=== PATIENT | female | born 2000 | race African-American/Black ===

== ENCOUNTER → 2021-07-19 14:21 | Outpatient (CLI) | payer OTHER, SELFPAY ==
--- NOTE | 2021-07-19 14:24 | DI.US.S_ITS ---
PROCEDURE: US OB <= 14 WEEKS FETUS INDICATIONS: DATES OUTSIDE/PRIOR DATING DATA: Last menstrual period (LMP): 05/13/21. LMP-based estimated date of delivery (JOSÉ MIGUEL): 02/17/22. First dating scan (date and location): 07/19/21, current study. Estimated date of delivery (JOSÉ MIGUEL) from first dating scan: 02/15/22. TECHNIQUE: Real-time scanning was performed of the fetus and maternal pelvic organs, with image documentation. COMPARISON: None. FINDINGS: Embryo: An intrauterine is present including a single pole with an average crown-rump length of 3.02 cm corresponding to a nine week six day plus or minus six days gestation. There is detectable cardiac activity in the fetus at a rate of 147 beats per minute. A normal yolk sac is present. There is an unfused amnion. Maternal organs: The cervix is closed. The intrauterine gestational sac is fundal and there is no perigestational hemorrhage. There is a peripherally vascular involuting right corpus luteum. The left ovary was not seen. IMPRESSION: 1. Single living intrauterine with a gestational age by ultrasound of nine weeks six days plus or minus six days, in good agreement with the clinically assigned gestational age. 2. Right ovarian corpus luteum. We strive to produce accurate, complete, and clear reports of imaging services. To assist us in improving patient care, this report was composed using standard report templates and voice recognition software. Therefore, it may contain abnormal punctuation, insertions and/or omissions. Occasional wrong-word or sound-alike substitutions may occur. Though we review the report and make efforts to correct it, we do recommend that the report be read carefully in proper context to recognize any text inaccuracies. Dictated by: Berenice Arceo M.D. on 07/19/2021 at 17:49 Approved by: Berenice Arceo M.D. on 07/19/2021 at 17:52
== END ==
PROVIDERS: Referring Provider Family Medicine; Visit Provider Family Medicine
DX: O34.81 Maternal care for other abnormalities of pelvic organs, first trimester (principal); N83.11 Corpus luteum cyst of right ovary; Z3A.09 9 weeks gestation of pregnancy
CPT/HCPCS: 76801; 76817

== ENCOUNTER → 2021-08-03 15:46 | Outpatient (CLI) | payer OTHER, SELFPAY ==
[2021-08-03 16:50] LABS: Add Manual Diff / Slide Review NO; Basophils Absolute Auto 0 /uL (0-100); Basophils Percent Auto 0.5 % (0-2); Eosinophils Absolute Auto 300 /uL (0-450); Eosinophils Percent Auto 3.9 % (2-4); Hematocrit 42.3 % (36-46); Hemoglobin 14.1 g/dL (12.0-16.0); Lymphocytes Absolute Auto 2100 /uL (1100-4500); Lymphocytes Percent Auto 24.9 % (25-40); Mean Corpuscular HGB Conc 33.3 % (30-36); Mean Corpuscular Hemoglobin 28.6 PG (26-34); Mean Corpuscular Volume 85.9 fL (80-100); Monocytes Absolute Auto 500 /uL (0-900); Monocytes Percent Auto 6.1 % (3-14); Neutrophils Absolute Auto 5500 /uL (1500-7000); Neutrophils Percent Auto 64.6 % (50-75); Platelet Count 254 X10^3/uL (150-400); Red Blood Cell Count 4.92 X10^6/uL (4.0-5.2); Red Cell Distribution Width 14.1 % (11.6-14.8); White Blood Cell Count 8.5 X10^3/uL (4.5-11.0)
[2021-08-03 17:34] LABS: Appearance Urine UA CLEAR; Bilirubin Urine UA NEGATIVE (NEGATIVE); Color Urine UA YELLOW; Glucose Urine UA NEGATIVE (Negative); Ketones Urine UA 2+ (NEGATIVE); Leukocyte Esterase Urine UA NEGATIVE (NEGATIVE); Nitrite Urine UA NEGATIVE (Negative); Occult Blood Urine UA NEGATIVE (Negative); Protein Urine UA NEGATIVE (Negative); Specific Gravity Urine UA 1.015 (1.000-1.035); Urobilinogen Urine UA 0.2 E.U./dL (0.2)
[2021-08-03 18:08] LABS: Folate > 20.0 ng/mL (2.76-20.0); Vitamin B12 620 pg/mL (239-931)
[2021-08-03 18:31] LABS: Hepatitis B Surface Antigen NEGATIVE s/c (NEGATIVE); Rubella Antibody IgG 9.2 IU/mL (>15)
[2021-08-03 18:47] LABS: HIV 1 & 2 Ab/Ag 4th Gen Combo NEGATIVE (NEGATIVE); Hep C Virus Ab w/Reflex Quant NEGATIVE s/c (NEGATIVE)
[2021-08-04 13:24] LABS: RPR Screen Non Reactive (Non Reactive); Varicella IgG Antibody <135 index (Immune >165)
== END ==
PROVIDERS: PCP Family Medicine; Referring Provider Family Medicine; Visit Provider Family Medicine
DX: Z34.00 Encounter for supervision of normal first pregnancy, unspecified trimester (principal); D56.0 Alpha thalassemia
CPT/HCPCS: 36415; 80055; 81003; 82607; 82746; 86787; 86803; 86850; 86900; 86901; 87086; 87389

== ENCOUNTER → 2021-08-30 12:53 | Outpatient (CLI) | payer OTHER, SELFPAY | PROVIDERS: PCP Family Medicine; Visit Provider Obstetrics & Gynecology | DX: O26.899 Other specified pregnancy related conditions, unspecified trimester (principal); R10.9 Unspecified abdominal pain | CPT/HCPCS: 87086 ==

== ENCOUNTER → 2021-09-27 15:18 | Outpatient (CLI) | payer OTHER, SELFPAY ==
[2021-09-27 16:08] LABS: Add Manual Diff / Slide Review NO; Basophils Absolute Auto 0 /uL (0-100); Basophils Percent Auto 0.4 % (0-2); Eosinophils Absolute Auto 200 /uL (0-450); Eosinophils Percent Auto 2.4 % (2-4); Hematocrit 36.1 % (36-46); Hemoglobin 12.3 g/dL (12.0-16.0); Lymphocytes Absolute Auto 1900 /uL (1100-4500); Lymphocytes Percent Auto 22.2 % (25-40); Mean Corpuscular HGB Conc 34.2 % (30-36); Mean Corpuscular Hemoglobin 29.7 PG (26-34); Mean Corpuscular Volume 86.9 fL (80-100); Monocytes Absolute Auto 700 /uL (0-900); Monocytes Percent Auto 8.6 % (3-14); Neutrophils Absolute Auto 5600 /uL (1500-7000); Neutrophils Percent Auto 66.4 % (50-75); Platelet Count 210 X10^3/uL (150-400); Red Blood Cell Count 4.15 X10^6/uL (4.0-5.2); Red Cell Distribution Width 13.7 % (11.6-14.8); White Blood Cell Count 8.5 X10^3/uL (4.5-11.0)
[2021-09-29 22:21] LABS: AFP Value 74.5 ng/mL (.); Gestational Age Ultrasound (.); Insulin Dep Diabetes No (.); OSBR Risk 1IN 10000 (.); Results Report (.); Test Results *Screen Negative* (.)
== END ==
PROVIDERS: PCP Family Medicine
DX: Z34.02 Encounter for supervision of normal first pregnancy, second trimester (principal); Z83.2 Family history of diseases of the blood and blood-forming organs and certain disorders involving the immune mechanism
CPT/HCPCS: 36415; 82105; 85025

== ENCOUNTER → 2021-10-04 14:10 | Outpatient (CLI) | payer OTHER, SELFPAY ==
--- NOTE | 2021-10-04 14:11 | DI.US.S_ITS ---
PROCEDURE: US OB >= 14 WEEKS FETUS INDICATIONS: 20 Week Anatomy Scan OUTSIDE/PRIOR DATING DATA: Last menstrual period (LMP): 05/13/2021 LMP-based estimated date of delivery (JOSÉ MIGUEL): 02/17/2022. First dating scan (date and location): 07/19/2021. Estimated date of delivery (JOSÉ MIGUEL) from first dating scan: 02/15/2022. The calculations are made using the ultrasound JOSÉ MIGUEL of 02/15/2022. TECHNIQUE: Real-time scanning was performed of the fetus, with image documentation and biometric measurements. COMPARISON: [facility], , OB <= 14 WEEKS FETUS, 07/19/2021, 14:35. FINDINGS: General: A single living intrauterine gestation is present. Presentation: Vertex. Placenta: Placental position is posterior , without previa. Amniotic fluid index: 11.5 cm, normal range is 5-24 cm. Single deepest vertical pocket is 4.4 cm. heart rate: 141 beats per minute. Maternal cervical canal: 6.9 cm long. Normal lower limit is 2.5 cm. biometrics: Biparietal diameter: 21 weeks 4 days Head circumference: 21 weeks 2 days Abdominal circumference: 21 weeks 2 days Femur length: 20 weeks 5 days Clinically estimated gestational age: 20 weeks 6 days Composite gestational age from present scan: 21 weeks 2 days Estimated weight and percentile: 397 g; 37th percentile Anatomic survey: Neuro: Ventricles are non-dilated at less than 10 mm. Cisterna magna is normal at 3-11 mm. Cerebellum is normal in size and morphology. Nuchal skin fold: Normal at less than 6 mm between 14-21 weeks gestational age. Face: Nose and lips, facial profile are normal. Spine: No evidence for spina bifida. Heart: 4-chambered heart is present, with normal ventricular outflow tracts. Diaphragm: Diaphragm is intact. Stomach: Left-sided stomach is present. Kidneys: No hydronephrosis. Normal is less than 5 mm in 2nd trimester, less than 7 mm in 3rd trimester. Cord: 3-vessel cord has orthotopic insertion. Bladder: Normal in size. Extremities: All 4 extremities identified. IMPRESSION: 1. Single living IUP redemonstrated and interval growth is normal. 2. Normal anatomic survey. We strive to produce accurate, complete, and clear reports of imaging services. To assist us in improving patient care, this report was composed using standard report templates and voice recognition software. Therefore, it may contain abnormal punctuation, insertions and/or omissions. Occasional wrong-word or sound-alike substitutions may occur. Though we review the report and make efforts to correct it, we do recommend that the report be read carefully in proper context to recognize any text inaccuracies. Dictated by: Jon COFFMAN Interpreted: Cindy Pascual MD on 10/04/2021 at 15:36 Transcribed by: DEON on 10/04/2021 at 15:38 Approved by: Cindy Pascual M.D. on 10/04/2021 at 16:37
== END ==
PROVIDERS: PCP Family Medicine; Referring Provider Obstetrics & Gynecology; Visit Provider Obstetrics & Gynecology
DX: Z34.02 Encounter for supervision of normal first pregnancy, second trimester (principal); Z3A.21 21 weeks gestation of pregnancy
CPT/HCPCS: 76811

== ENCOUNTER → 2021-11-23 15:11 | Outpatient (CLI) | payer OTHER, SELFPAY ==
[2021-11-23 16:47] LABS: Hematocrit 35.5 % (36-46); Hemoglobin 11.9 g/dL (12.0-16.0)
[2021-11-23 17:14] LABS: GTT (PREG) 1 Hour PP 50gm Dose 65 mg/dL (76-139)
== END ==
PROVIDERS: Referring Provider Family Medicine; Visit Provider Family Medicine
DX: Z34.00 Encounter for supervision of normal first pregnancy, unspecified trimester (principal); Z3A.28 28 weeks gestation of pregnancy
CPT/HCPCS: 36415; 82950; 85014; 85018

== ENCOUNTER → 2021-12-07 13:01 | Outpatient (CLI) | payer OTHER, SELFPAY ==
--- NOTE | 2021-12-07 13:02 | DI.US.S_ITS ---
PROCEDURE: US OB LIMITED INDICATIONS: SIZE GREATER THAN DATES TECHNIQUE: Real-time scanning of the fetus with image documentation. COMPARISON: None. FINDINGS: A single living intrauterine gestation is present. Presentation: Vertex. Placenta: Placental position is posterior, without previa. Amniotic fluid index: 15.9 cm, normal range is 5-24 cm. Single deepest vertical pocket is 4.8 cm. heart rate: 131 beats per minute. Maternal cervical canal: 3.9 cm long. Normal lower limit is 2.5 cm. Estimated gestational age from initial scan: 30 weeks 0 days Estimated gestational age from the current study: 30 weeks 5 days. Estimated weight: 1707 grams, 77th percentile. IMPRESSION: Single living intrauterine gestation with normal HYACINTH and appropriate growth. Size concordant with dates. Dictated by: Edward Camarena M.D. on 12/08/2021 at 11:47 Approved by: Edward Camarena M.D. on 12/08/2021 at 11:57
== END ==
PROVIDERS: Referring Provider Family Medicine; Visit Provider Family Medicine
DX: Z36.88 Encounter for antenatal screening for fetal macrosomia (principal); Z3A.30 30 weeks gestation of pregnancy
CPT/HCPCS: 76815

== ENCOUNTER → 2022-01-20 16:34 | Outpatient (CLI) | payer OTHER, SELFPAY ==
[2022-01-21 12:52] LABS: Strep Grp B PCR NEG for Grp B Strep
== END ==
PROVIDERS: Visit Provider Family Medicine
DX: Z34.93 Encounter for supervision of normal pregnancy, unspecified, third trimester (principal); Z3A.36 36 weeks gestation of pregnancy
CPT/HCPCS: 87653

== ENCOUNTER 2022-02-07 05:49 | Inpatient (IN) | payer OTHER, SELFPAY ==
[2022-02-07] MEDS: LACTATED RINGERS 1,000 ML 999 ML IV ×3 (06:46→15:56)
[2022-02-07] MEDS: PENICILLIN G POTASSIUM 5,000,000 UNIT in DEXTROSE 5% IN WATER 250 ML 250 UNIT IV (06:58)
[2022-02-07 07:31] LABS: Add Manual Diff / Slide Review NO; Basophils Absolute Auto 0 /uL (0-100); Basophils Percent Auto 0.3 % (0-2); Eosinophils Absolute Auto 100 /uL (0-450); Eosinophils Percent Auto 0.5 % (2-4); Hematocrit 40.6 % (36-46); Hemoglobin 13.3 g/dL (12.0-16.0); Lymphocytes Absolute Auto 1900 /uL (1100-4500); Lymphocytes Percent Auto 17.2 % (25-40); Mean Corpuscular HGB Conc 32.8 % (30-36); Mean Corpuscular Hemoglobin 28.7 PG (26-34); Mean Corpuscular Volume 87.6 fL (80-100); Monocytes Absolute Auto 500 /uL (0-900); Monocytes Percent Auto 4.4 % (3-14); Neutrophils Absolute Auto 8700 /uL (1500-7000); Neutrophils Percent Auto 77.6 % (50-75); Platelet Count 229 X10^3/uL (150-400); Red Blood Cell Count 4.64 X10^6/uL (4.0-5.2); Red Cell Distribution Width 14.1 % (11.6-14.8); White Blood Cell Count 11.2 X10^3/uL (4.5-11.0)
--- NOTE | 2022-02-07 07:31 | P.HPOB_ITS ---
OB HPI Date/Time Date of admission: 02/07/22 Date Patient Seen: 02/07/22 Time Patient Seen: 07:45 History of Present Condition Chief complaint: labor JOSÉ MIGUEL Calculator Estimated Delivery Date Method Current WG Current Estimate 02/17/22 LMP (Certain) 38w 4d Other Estimates 02/15/22 Ultrasound #1 38w 6d Estimated Gestational Age (weeks): 38w4d : 1 Para: 0 Narrative: 22-year-old at 38 weeks and 4 days gestation who presented in active labor. Denies leaking bleeding and reports good movement. She was seen at [facility] overnight for labor check and discharged home. She returned early this morning. was complicated by concern for alpha thalassemia early in the . She saw [facility] and this was ruled out. She also had significant nausea and vomiting throughout her which improved by the end. There was concern for size greater than dates at 30 weeks. Gestational diabetes testing was negative. Ultrasound was significant for estimated weight at the seventy-seventh percentile at 30 weeks. care: good care, initiated at week # (11), number of visits (11) and pounds weight gain (27) Dating criteria OB: LMP confirmed by 1st trimester US Ultrasounds: normal mid trimester US Obstetrical complications: none Medical complications OB: none Preadmission Labs Last OB Lab Results: Blood Type O Positive 08/03/21 15:52 Antibody Screen Negative 08/03/21 15:52 Hematocrit 40.6 % (36-46) 02/07/22 06:50 Hemoglobin 13.3 g/dL (12.0-16.0) 02/07/22 06:50 Hepatitis B Surface Antigen Negative s/c (NEGATIVE) 08/03/21 15 :52 Hepatitis C Antibody Negative s/c (NEGATIVE) 08/03/21 15:52 Rubella Antibody 9.2 IU/mL (>15) L 08/03/21 15:52 Varicella-Zoster IgG Antibody <135 index (Immune >165) L 15:52 Glucose 1 Hour 65 mg/dL (76-139) L 11/23/21 16:15 Group B Streptococcus (PCR) Neg for grp b strep 01/20/22 16:34 -: Urine: negative Genetic Screens: Quad screen: Normal External Labs -: Urine: negative Evaluation Evaluation Baseline heart rate: 115 Variability: Moderate (11-25) monitor accelerations: Present Monitor Decelerations: Absent Contraction Frequency (minutes): 2 Status: Category l Dilation (cm): 5 Effacement (%): 100 station: -2 Non-invasive Membranes Rupture Test: negative PFS Medical History Anemia (~2020) Eczema Ovarian cyst (~2017) Surgical History H/O wisdom tooth extraction Family History Mother Acquired hypothyroidism DVT (deep venous thrombosis) Father Acute Crohn's disease Degenerative disc disease Grandmother Hypertension Cancer History of heart disease Grandfather Diabetes mellitus Grandmother Cancer Social History marital status: unmarried,living together (engaged) number of children: 0 household members: significant other lives independently: Yes housing: apartment pets and animals: No education level: college occupational status: employed () current occupational exposures/hazards: No special paulo needs: No seatbelt use: always water heater temp set < 120 deg: No working smoke detector in home: Yes fire extinguisher in home: No carbon monox detector in home: Yes firearms in home: No do you feel safe at home: Yes Smoking Status: Never smoker alcohol intake: former substance use type: does not use during the past year weight has: remained stable well-balanced diet: daily or most days daily servings fruits/ve-4 caffeine: Yes (aware limit 200 mg) Type(s) of exercise: walking (hiking) Meds Home Medications and Allergies Home Medications Medication Instructions Recorded Confirmed Type prenat.vits,marta,ewo-zcul-ufasv 1 tab PO DAILY 06/30/21 02/03/22 History Double Electric Breast Pump and #1 ea 12/23/21 02/03/22 Rx supplies ondansetron HCl 4 mg tablet 4 mg PO Q8H PRN nausea and 12/23/21 02/03/22 Rx vomiting #30 tabs Allergies Allergy/AdvReac Type Severity Reaction Status Date / Time No Known Drug Allergies Allergy Verified 02/07/22 07:44 Review of Systems Review of Systems ROS: Yes All systems reviewed with the patient and are negative except as othe rwise documented OB Exam Narrative Exam Narrative: Temperature 36.7? blood pressure 131/79 heart rate 82 HENMT Head: normal to inspection Mouth: oral mucosae normal Other: Shaking and vomiting after epidural placement Eyes General: appearance normal, both eyes and all related structures Resp Effort & Inspection: normal respiratory effort Cardio Rate: regular rate Rhythm: regular rhythm Extremities Lower extremity: Yes normal to inspection; No edema Presentation: vertex Estimated Weight (lbs): 7 Objective Labs Result Diagrams: 02/07/22 06:50 Assessment and Plan Assessment and Plan Assessment and Plan narrative: 22-year-old at 38 weeks and 4 days gestation in active labor. GBS positive. Plan Admit for labor Began penicillin for GBS prophylaxis Epidural upon request Anticipate
[2022-02-07 07:34] LABS: COVID19 -Nasal RAPID Negative (Negative)
[2022-02-07 07:47] VITALS: BP 131/79
[2022-02-07] MEDS: FENT 2MCG/ML BUPIV 0.125% EPI 200 MCG/100 ML PLAST..BAG 6 MCG EPIDURAL (08:10)
[2022-02-07] MEDS: ONDANSETRON 4 MG/2 ML INJ IV ×2 (08:31→12:32)
--- NOTE | 2022-02-07 11:02 | PM.OBPNLAB ---
Date/Time Date Patient Seen: 02/07/22 Time Patient Seen: 10:49 Pain Control Pain control: epidural Pelvic Exam Dilation (cm): 5 Effacement (%): 100 station: -2 Amniotic membrane status: Intact Contractions Monitor mode: External Contraction frequency (min): 6 Status status: Category ll Heart Rate Baseline: 120 Monitor Accelerations: Absent Monitor Decelerations: Prolonged (7 minute deceleration down to 60s) Assessment and Plan Assessment: active labor Comments: 22 year old at 38+4 weeks in active labor with an epidural now with a prolonged deceleration for 7 minutes down to the 60s. Decel resolved after IV fluid bolus, oxygen and hands and knees. Terbutaline 0.25 mg IM also given. Baseline returned to 130s with moderate variability, accelerations and no further decelerations. Discussed the need for emergent section with the patient and her partner if another prolonged deceleration occurs. SVE was unchanged from this morning though contractions had spaced out after epidural placement. Will continue to monitor closely.
[2022-02-07] MEDS: PENICILLIN G POTASSIUM 3,000,000 UNIT/50 ML FROZ.PIGGY 100 UNIT IV ×2 (11:18→14:48)
--- NOTE | 2022-02-07 13:24 | PM.OBPNLAB ---
Date/Time Date Patient Seen: 02/07/22 Time Patient Seen: 12:50 Pain Control Pain control: tolerating well and epidural Comments: She is quite nauseated and has been vomiting. Just received Zofran. Otherwise comfortable with epidural. Pelvic Exam Dilation (cm): 6 Effacement (%): 100 station: -2 Amniotic membrane status: Ruptured (AROM with small amount of clear fluid) Contractions Monitor mode: External Contraction frequency (min): 4 Status status: Category l Heart Rate Baseline: 130 Monitor Accelerations: Present Monitor Decelerations: Absent Monitor Variability: Moderate Assessment and Plan Assessment: active labor Plan: continuous present management Comments: 22 year old at 38+4 weeks gestation in active labor. EFM category 1 for the last 2 hours following prolonged 7 minute deceleration. She has made slight cervical change since 8 AM today. AROM performed with clear fluid. Will continue to monitor closely and manage expectantly.
--- NOTE | 2022-02-07 15:10 | PM.OBPNLAB ---
Date/Time Date Patient Seen: 02/07/22 Time Patient Seen: 15:00 Pain Control Pain control: epidural Pelvic Exam Dilation (cm): 6 Effacement (%): 100 station: -2 Amniotic membrane status: Ruptured (AROM with small amount of clear fluid) Contractions Monitor mode: External Contraction frequency (min): 4 Status status: Category ll Heart Rate Baseline: 120 Monitor Accelerations: Present Monitor Decelerations: Prolonged Assessment and Plan Assessment: active labor Plan: Comments: 22 year old at 38+4 weeks gestation with intolerance of labor with a second prolonged deceleration to the 90s for 2 minutes, brief return to 120s followed by another deceleration to the 90s for two minutes then recovery to baseline. Cervix has not progressed over the last several hours as well. Unable to start pitocin due to non-reassuring FHT. Recommended primary section for non-reassuring heart tones. Risks of bleeding, infection, injury to surrounding organs discussed with the patient and her . All questions answered and consent signed. She is accepting of a blood transfusion if indicated. Will give cefazolin 2 g and azithromycin 500 mg prior to surgery.
--- NOTE | 2022-02-07 15:16 | PM.PREOP ---
Pre-operative Note COVID-19 COVID-19 status: Negative Result date/Date tested (Pos, Neg/Pending): 02/07/22 Interval Note History & Physical reviewed/Exam performed by Physician: Yes Changes to H&P: No
[2022-02-07] MEDS: CEFAZOLIN 2 GM/100 ML PREMIX 100 ML IV (15:27)
--- NOTE | 2022-02-07 15:32 | SUR.OPER ---
Supine on Padded OR bed, head on pillow, safety belt at thigh, arms secured on padded arm boards at <90 degrees abduction. Bump under right buttock. Legs uncrossed with pillow under knees, tape over blanket to lower legs.
[2022-02-07] MEDS: AZITHROMYCIN 500 MG in DEXTROSE 5% IN WATER 250 ML 250 MG IV (15:43)
--- NOTE | 2022-02-07 15:44 | SUR.OPER ---
FHT's 140's. TOB 1543 live male. Placenta and cord blood x 2 to OB with OB RN
[2022-02-07 16:31] VITALS: BP 114/74; PULSE 96; RESP 20; TEMP 36.9; O2SAT 100
[2022-02-07 16:36] VITALS: BP 108/81; PULSE 92; RESP 22; O2SAT 100
--- NOTE | 2022-02-07 16:37 | PM.OBCS.1 ---
Operative Date/Time/Diagnoses Date of procedure: 02/07/22 Time of procedure: 15:35 Pre-op diagnosis: Non-reassuring heart tones 38 weeks of Post-op diagnosis: same Procedure & Clinicians Procedure: Primary low transverse section Same procedure as scheduled: Yes Indications: Non-reassuring heart tones 38 weeks of Surgeon: Ellen Loyd Click Yes if Unassisted: No Bottom Filler: Ashely Groves Reason for Bottom Filler: Dr. Groves was essential to the case for retraction, suctioning, delivery of and suturing half of incisions. Operative Notes Findings: Vigorous male infant, normal uterus, tubes and ovaries Closure Type: primary Specimen(s): cord blood and cord pH Intraoperative meds administered: Ketorolac and Pitocin Applied: Catheter Estimated Blood Loss (mL): 400 Procedure in detail: The patient was taken to the operating room and transferred to the operating table. She was then placed in the dorsal supine position with a leftward tilt. She was prepped and draped in the usual sterile fashion. A timeout was performed. After epidural analgesia was found to be adequate, a Pfannenstiel skin incision was made 2 fingerbreadths above the pubic symphysis and carried through to the underlying layer fascia. The fascia was nicked in the midline and the incision extended bilaterally with Bacon scissors. The superior aspect of the fascial incision was grasped with a Addie clamps, elevated, and the underlying rectus muscles dissected off sharply and bluntly. Attention was then turned to the inferior aspect of this incision which in a similar fashion was grasped with a Addie clamps, elevated, and the underlying rectus muscles dissected off sharply and bluntly. The rectus muscles were in the midline. The peritoneum was identified and entered bluntly. This incision was extended superiorly and inferiorly with lateral traction from both physicians with good visualization of the bladder. The bladder blade was inserted. The vesicouterine peritoneum was identified, grasped with the pickup, and entered sharply with the Metzenbaum scissors. This incision was extended bilaterally, and the bladder flap was created digitally. The bladder blade was reinserted. The lower uterine segment was incised in a transverse fashion with the scalpel. Upon entering the amniotic sac there was a small amount clear amniotic fluid. The infant's head was delivered by Dr. Groves and the remainder of the body delivered without difficulty. The cord was double clamped and cut after one minute delay. A segment also collected for cord gases. The was handed off to waiting RN and RT. The placenta was delivered with gentle traction on the cord. The uterus was cleared of all clots and debris. The uterine incision was repaired with 0 vicryl in a running interlocking fashion and a second layer the same suture was used for an imbricating layer. Hemostasis was achieved. The tubes and ovaries were examined and were found to be normal. The gutters were cleared of all clots and debris. The bladder flap was reapproximated using 2-0 chromic in a running fashion. The parietal peritoneum was closed using 3-0 Vicryl in a running fashion. The fascia was reapproximated using 0 Vicryl in a running fashion. Subcutaneous layer was copiously irrigated with warm normal saline. 3 simple interrupted sutures of 3-0 Vicryl were placed to reapproximate the subcutaneous layer. The skin was closed with 4-0 undyed Vicryl in a subcuticular fashion. Steri-Strips were placed. An Aquacel dressing was placed. The uterus was expressed of a small amount of old blood. Sponge, lap, and instrument counts were correct. The patient tolerated the procedure well, and was taken to PACU in stable condition. Boley Baby 1: Infant Gender: Male Presentation: vertex Position: Occiput Posterior Placental Delivery Description: Spontaneous Cord Vessel Description: 3 Vessels score (1 min): 8 score (5 min): 9 Post-operative Condition: stable Disposition: PACU Aftercare: routine postop
[2022-02-07 16:42] VITALS: BP 116/75; PULSE 92; RESP 22; O2SAT 100
[2022-02-07 16:45] VITALS: BP 125/78; PULSE 99; RESP 24; O2SAT 99
[2022-02-07] MEDS: OXYCODONE IR 5 MG TABLET PO (17:45)
[2022-02-07] MEDS: ACETAMINOPHEN 325 MG TABLET 650 MG PO (17:45)
[2022-02-07] MEDS: KETOROLAC 30 MG/ML VIAL IV (22:21)
[2022-02-08] MEDS: OXYCODONE IR 5 MG TABLET PO ×5 (00:23→12:57)
[2022-02-08] MEDS: KETOROLAC 30 MG/ML VIAL IV ×2 (04:19→10:09)
[2022-02-08] MEDS: ACETAMINOPHEN 325 MG TABLET 650 MG PO ×4 (04:19→22:00)
[2022-02-08] MEDS: ONDANSETRON 4 MG/2 ML INJ IV (04:25)
[2022-02-08] MEDS: PRENATAL VIT,CALC/IRON/FOLIC 1 TABLET 1 TAB PO (08:08)
[2022-02-08] MEDS: DOCUSATE 100 MG CAPSULE 200 MG PO (08:08)
--- NOTE | 2022-02-08 08:11 | PM.OBPN.1 ---
Subjective - OB Subjective Patient comments: incisional pain baby status: doing well feeding status: exclusively breast feeding Date Patient Seen: 02/08/22 Time Patient Seen: 07:45 Interval history: She did not sleep overnight at all. Attempting to breast-feed though baby does not sustain a latch. She has been expressing colostrum and spoon feeding. is doing well. She has quite a bit of pain in her lower abdomen and back minimally relieved with medication. She is also having a lot of cramping. Vaginal bleeding as expected. She is tolerating fluids though continues to have nausea. She does feel up for eating breakfast this morning. She has been out of bed and up to the bathroom. Exam Vital Signs (past 8 hours): Oxygen Delivery Method Room Air Temperature 97.7? blood pressure 110/48 pulse 71 respirations 19 Narrative Exam Narrative: General: Awake and alert, no acute distress. HEENT: NCAT, EOMI, moist oral mucosa CV: Regular rate and rhythm, no murmurs, rubs or gallops Lungs: CTAB, no wheezes, rales, or rhonchi Abdomen: Aquacel dressing intact without drainage. Soft, nontender; bowel tones active; uterus firm 1 cm above umbilicus Extremities: Warm, no edema bilaterally Objective Labs Result Diagrams: 02/07/22 06:50 Labs: Laboratory Results - last 24 hr 02/07/22 06:50 Blood Type O Positive Antibody Screen Negative Assessment & Plan Assessment and Plan (1) 38 weeks gestation of : Status: Acute (2) S/P : Status: Acute (3) Non-reassuring heart tones, delivered, current hospitalization: Status: Acute Plan day: 1 plan OB: routine postop care Comments: 22-year-old after primary section for nonreassuring heart tones. She has quite a bit of pain and is due for pain medication now. She is tolerating oral intake though not yet passing flatus. Bowel tones present on exam. Encouraged her to rest today as she did not sleep at all overnight. Anticipate discharge home tomorrow as long as she is doing well. No concerns in the . Time Spent With Patient Time: Total time spent is greater than 50% in coordination of care (as documented) at patient's floor/unit and/or counseling patient: Time with patient: 15-24 minutes
[2022-02-08 08:28] LABS: Add Manual Diff / Slide Review NO; Basophils Absolute Auto 0 /uL (0-100); Basophils Percent Auto 0.2 % (0-2); Eosinophils Absolute Auto 100 /uL (0-450); Eosinophils Percent Auto 0.9 % (2-4); Hematocrit 32.2 % (36-46); Hemoglobin 10.7 g/dL (12.0-16.0); Lymphocytes Absolute Auto 2300 /uL (1100-4500); Lymphocytes Percent Auto 20.4 % (25-40); Mean Corpuscular HGB Conc 33.2 % (30-36); Mean Corpuscular Hemoglobin 28.9 PG (26-34); Mean Corpuscular Volume 87.1 fL (80-100); Monocytes Absolute Auto 900 /uL (0-900); Monocytes Percent Auto 8.4 % (3-14); Neutrophils Absolute Auto 7900 /uL (1500-7000); Neutrophils Percent Auto 70.1 % (50-75); Platelet Count 181 X10^3/uL (150-400); Red Cell Distribution Width 13.7 % (11.6-14.8); White Blood Cell Count 11.3 X10^3/uL (4.5-11.0)
[2022-02-08] MEDS: IBUPROFEN 600 MG TABLET PO ×2 (16:05→22:00)
[2022-02-08] MEDS: OXYCODONE IR 10 MG TABLET PO ×2 (17:03→21:01)
[2022-02-09] MEDS: OXYCODONE IR 5 MG TABLET PO ×2 (05:29→07:36)
[2022-02-09] MEDS: IBUPROFEN 600 MG TABLET PO ×2 (05:30→12:03)
[2022-02-09] MEDS: ACETAMINOPHEN 325 MG TABLET 650 MG PO ×2 (05:30→12:03)
--- NOTE | 2022-02-09 06:29 | PM.OBDS.1 ---
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 Patient presented in active labor and received an epidural. She had a prolonged deceleration down to the 60s spontaneously with eventual recovery after fluid bolus, oxygen and hands and knees. There was discussion at that time for possible section so we have another deceleration. She was stable for several hours however labor not progressing past 6 cm. Artificial rupture of membranes performed with clear fluid. EFM remained category 1 after AROM however a couple hours later there was another prolonged deceleration requiring position change, fluid bolus and oxygen. After discussion with the patient and her the decision was made to proceed with primary section for nonreassuring heart tones. Surgery was uncomplicated and she was delivered of a vigorous male with Apgars of 8 and 9. course has been uncomplicated. She is ambulating, voiding and passing flatus. Tolerating a diet. Pain controlled with Tylenol, ibuprofen and oxycodone. Vaginal bleeding moderate as expected. She is breast-feeding. No concerns in the . Follow-up in 1 week for Aquacel dressing removal. Patient advised to call for fevers, severe pain or bleeding through more than a pad an hour. Peripartum Data Infant Delivery Method: Section Tucker 1: Gender: Male Disposition of : home Discharge Diagnosis (1) 38 weeks gestation of : Status: Acute (2) S/P : Status: Acute (3) Non-reassuring heart tones, delivered, current hospitalization: Status: Acute Status at Discharge Cognitive/behavioral status at discharge: at baseline, oriented Functional status at discharge: independent ambulation Overall status at discharge: patient is progressing back to baseline Time Spent with Patient Time attestation: Total time spent providing and/or coordinating discharge services: Time spent: Less than 30 minutes Objective Labs Result Diagrams: 02/08/22 08:10 Labs: Laboratory Results - last 24 hr 02/08/22 08:10 WBC 11.3 H RBC 3.70 L Hgb 10.7 L Hct 32.2 L MCV 87.1 MCH 28.9 MCHC 33.2 RDW 13.7 Plt Count 181 Neut % (Auto) 70.1 Lymph % (Auto) 20.4 L Bulloch % (Auto) 8.4 Eos % (Auto) 0.9 L Baso % (Auto) 0.2 Neut # (Auto) 7900 H Lymph # (Auto) 2300 Bulloch # (Auto) 900 Eos # (Auto) 100 Baso # (Auto) 0 Exam Vital Signs (past 8 hours): Oxygen Delivery Method Room Air Temperature 97.6 blood pressure 101/56 heart rate 90 respirations 16 Narrative Exam Narrative: General: Awake and alert, no acute distress. HEENT: NCAT, EOMI, moist oral mucosa CV: Regular rate and rhythm, no murmurs, rubs or gallops Lungs: CTAB, no wheezes, rales, or rhonchi Abdomen: Aquacel dressing intact without drainage. Soft, nontender; bowel tones active; uterus firm 1 cm above umbilicus. Extremities: Warm, no edema bilaterally Discharge Plan Discharge Plan Patient Disposition: Home Discharge orders & Medications Prescriptions: Continued (DME) [employer] Breast Pump and supplies See Rx Instructions .ROUTE .MEDSUPPLY Qty: 1 0RF Rx Instructions: Use daily as directed ondansetron HCl 4 mg tablet 4 mg PO Q8H PRN (Reason: nausea and vomiting) Qty: 30 1RF prenat.vits,marta,ydp-sarn-veeyy Tablet 1 tab PO DAILY No Action ibuprofen 600 mg tablet 600 mg PO Q6H PRN (Reason: Fever/Mild Pain (1-3)) Qty: 30 0RF docusate sodium 100 mg capsule 200 mg PO DAILY Qty: 30 0RF oxycodone 5 mg tablet 5 mg PO Q4H PRN (Reason: Pain, Moderate (4-6)) Qty: 30 0RF Follow up/Referrals: Ellen Loyd DO [Physician] - 02/14/22 10:15 am Visit Report/Discharge Packet Instructions: DI for Stand Alone Forms: Discharge: Care Visit Report Forms: Patient Portal/API, Stroke Signs & Symptoms Discharge Data Primary Care Provider: Miscellaneous,Doctor
[2022-02-09] MEDS: PRENATAL VIT,CALC/IRON/FOLIC 1 TABLET 1 TAB PO (07:36)
[2022-02-09] MEDS: DOCUSATE 100 MG CAPSULE 200 MG PO (07:36)
[2022-02-09] MEDS: OXYCODONE IR 10 MG TABLET PO (12:02)
== END 2022-02-09 16:00 | disposition home or self-care (01) | DRG 788 ==
PROVIDERS: Family Medicine; Admitting Provider Family Medicine; Referring Provider Obstetrics & Gynecology; Visit Provider Family Medicine
PROC: (CPT 59514; principal; 2022-02-07 16:00)
DX: O76 Abnormality in fetal heart rate and rhythm complicating labor and delivery (principal); Z3A.38 38 weeks gestation of pregnancy; Z37.0 Single live birth; O99.824 Streptococcus B carrier state complicating childbirth; Z20.822 Contact with and (suspected) exposure to COVID-19
CPT/HCPCS: 36415; 59050; 59510; 59514; 85025; 86850; 86900; 86901; 87635; C9803; G0379; J0690; J1885; J2250; J2274; J2405; J2540; J2590

== ENCOUNTER 2022-11-09 12:45 | Outpatient (RCR) | payer OTHER, SELFPAY ==
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
--- NOTE | 2022-08-30 18:36 | PT.OPPOC ---
Physical, Occupational & Speech Therapy At [facility] Current Diagnoses Spinal instabilities, sacral and sacrococcygeal region (08/30/22) Dorsalgia, unspecified (08/30/22) Other muscle spasm (08/30/22) Encounter for routine follow-up (08/30/22) Visit Care Team Role Provider Type Krystina Escalante PA-C Attending Provider Non-Staff Family Provider Primary Care Provider Referring Provider Specialty: Medical Address: [address] [place] [address], [phone] Phone: Fax: Email: [email or web address] Plan Of Care PT-OP-T Assessment and Plan Start: 08/30/22 09:02 Freq: Status: Active Protocol: Document 08/30/22 14:15 [facility] (Rec: 09/01/22 18:30 [facility] [id number]) Physical Therapy Assessment Rehab Potential Rehabilitation Potential Excellent Evaluation Complexity Number of Personal Factors/Comorbidities 0 Number of Body Systems Impaired 1-2 Clinical Presentation at Evaluation Stable Impairments Impairments Functional Activities,Pain, Posture,ROM,Soft Tissue Mobility,Strength,Tone Goals 3 Impairment SI instability with + march tests and ASLR test Short Term Goal (STG) Celina is educated on transverse abdominal and pelvic floor strengthening for postpartrum core stabilization and SI stabilization Mechanical Integrity Specialist Goal (LTG) Celina is able to keep her pelvis stable with ASLR test B and presents with negative march test LTG Duration 12 weeks 2 Impairment increased lumbar lordosis with anterior pelvic tilt and lumbar paraspinal guarding Short Term Goal (STG) Celina is educated in neutral posture and given stretches for the low back to decrease lumbar paraspinal tightness and guarding STG Duration 4 weeks Mechanical Integrity Specialist Goal (LTG) Celina presents with overall decreased lumbar paraspinal tightness and 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 She is referred to PT with c/o extreme back and hip pain that started during her and then worsened post . She describes pain across her shoulders and upper trapezius that increases with lifting in front of her such as trying to picker / packer her son from the tub or with diaper changes. Celina reports symptoms of numbness across her shoulders with this activity. She describes 8/10 pain across her back and hips. She is currently on light duty with the [employer] and working 2 days per week. She is able to bring her baby with her to work. With exam today Celina is in a great deal of muscle spasms up and down her spine. She has difficulty with exam as it hurts her to be touched. She stands in very erect posture with a anterior pelvic tilt and guarding of the lumbar paraspinals. She presents with + tests for SI instability. SLR increases pain at 50 degrees B. She was unable to tolerate any suboccipital work in the cervical spine today as she is in spasm. I started her with some gentle stretches to work on decreasing the hip tightness and tightness in her neck. She did tolerate these . Celina is a good candidate for PT for reducing guarding and tightness and restoring her inner core strength for SI support as well as decreasing tension in the upper neck Physical Therapy Plan Frequency and Duration Frequency of Treatment 2x/Week Duration of treatment (weeks) 12 Plan of Care Start Date 08/30/22 Plan of Care End Date 11/22/22 Therapeutic Interventions Therapeutic Interventions Home Exercise Program,Manual Therapy,Patient/Caregiver Education,Self-Care/Home Management,Soft Tissue Mobilization,Therapeutic Exercises Next Visit Focus/Plan Next Note Type Treatment Note Next Visit Plan Trial of MET for balancing the SI joint, work on stretches to reduce spasm of the lumbar paraspinals working towards reducing anterior pelvic tilt, pelvic floor and TA stabilization exercises, review stretches for the neck Plan of Care Dates Plan of Care Start Date 08/30/22 Plan of Care End Date 11/22/22 Electronically Signed by: Sasha Chery, PT 09/01/22 [id number] If you are in agreement with this Plan of Care, please return a signed and dated copy. I have reviewed this Plan of Care and certify that the skilled therapy services above are required to meet the patient?s needs. Physician Signature Date Printed Name and Credentials Clinical Instructor Signature Printed Name and Credentials
--- NOTE | 2022-09-02 10:00 | PT-OP ANOTE ---
Pt called back and unable to make appt scheduled appt due to no childcare available.
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
--- NOTE | 2022-10-06 15:02 | PT-OP ANOTE ---
Addendum entered and electronically signed by Laurie Schwartz PTA 10/06/22 15:10: JAVA SDET was able to call and speak with pt, pt stated just got out of ER for a concussion, was going to call but they were running tests and unable. Pt asked if there was an appt sooner than 11/16 with PT. JAVA SDET stated PT has opening on 10/13 at 1400 and pt wanted to make that appt. JAVA SDET discussed sending message for front office medical assistant to call and add more appts PT/ JAVA SDET, await call back from schedulers. Pt agreeable to seeing JAVA SDET as well. Original Note: Pt did not show for today's appt, JAVA SDET called and reminded of NS today and offered bringing her 5 mo infant during appts if challenged with finding childcare. JAVA SDET discussed POC writtten 2x/wk and next appt not scheduled until 11/16, please call to add more appts out to 11/16. PT Sasha has an opening currently on 10/13 if wish to add appt.
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
== END 2023-01-17 09:58 | disposition home or self-care (01) ==
LOC: PHYS 12:45
PROVIDERS: Absent Provider Physician Assistant; Family Provider Physician Assistant; PCP Physician Assistant; Referring Provider Physician Assistant; Visit Provider Physician Assistant
DX: Z39.2 Encounter for routine postpartum follow-up (principal); M54.9 Dorsalgia, unspecified; M53.2X8 Spinal instabilities, sacral and sacrococcygeal region; M62.838 Other muscle spasm
CPT/HCPCS: 97110; 97140; 97161